=== PATIENT | female | born 1985 | race American Indian/Alaskan Native ===

== ENCOUNTER 2017-11-28 08:11 | Emergency (ER) | payer SELFPAY ==
[2017-11-28 08:28] VITALS: BP 120/62
[2017-11-28] MEDS ORDERED: BOOSTRIX IM ONE (09:44)
[2017-11-28] MEDS ORDERED: MOTRIN PO ONE (09:44)
[2017-11-28] MEDS ORDERED: XYLOCAINE 1% MPF 5 mL INFILTRATI ONE (09:44)
--- NOTE | 2017-11-28 09:45 | Emergency Department Report ---
Blank Doc - Documentation Documentation: Patient is a 31-year-old female who states that she was taking out a trash this morning and there was a piece of glass that poked through the bag and cut her in the left lower extremity. Patient has a proximally 4 cm laceration that is present the anterior lower extremity on the left. There is no active bleeding at this time. Patient is needing a tetanus shot today. Patient removed to a treatment room for laceration repair.
--- NOTE | 2017-11-28 10:34 | Emergency Department Report ---
- General Chief Complaint: Wound/Laceration Stated Complaint: LEG LACERATION Time Seen by Provider: 11/28/17 09:17 Source: patient Mode of arrival: Ambulatory Limitations: No Limitations - History of Present Illness Initial Comments: 31-year-old female past medical history none presents with complaint of laceration to left lower extremity. Patient was throwing out glass this morning at home and states that she accidentally cut her leg with broken glass. Denies any other injuries. Visible laceration to left lower extremity below left knee. Unknown tetanus status. -: This morning Location: other Extremity Location: Left: Lower Leg (diagonal laceration across the left lower knee region) Place: home Patient Tetanus UTD: No Context: accidental Associated Symptoms: pain - Related Data Previous Rx's Medication Instructions Recorded Last Taken Type Acetaminophen/Codeine [Tylenol 1 tab PO Q6H PRN #4 tab 11/28/17 Unknown Rx /Codeine # 3 tab] Cephalexin [Keflex] 500 mg PO BID #14 capsule 11/28/17 Unknown Rx Ibuprofen [Motrin] 800 mg PO Q8HR PRN #20 tablet 11/28/17 Unknown Rx Allergies Allergy/AdvReac Type Severity Reaction Status Date / Time No Known Allergies Allergy Unverified 11/28/17 08:28 ED Review of Systems ROS: Stated complaint: LEG LACERATION Other details as noted in HPI Constitutional: denies: chills, fever Eyes: denies: eye pain, eye discharge, vision change ENT: denies: ear pain, throat pain Respiratory: denies: cough, shortness of breath, wheezing Cardiovascular: denies: chest pain, palpitations Endocrine: no symptoms reported Gastrointestinal: denies: abdominal pain, nausea, diarrhea Genitourinary: denies: urgency, dysuria, discharge Musculoskeletal: denies: back pain, joint swelling, arthralgia Skin: denies: rash, lesions Neurological: denies: headache, weakness, paresthesias Psychiatric: denies: anxiety, depression Hematological/Lymphatic: denies: easy bleeding, easy bruising ED Past Medical Hx - Past Medical History Previous Medical History?: No - Surgical History Past Surgical History?: No - Social History Smoking Status: Current Some Day Smoker Substance Use Type: Alcohol - Medications Home Medications: Home Medications Medication Instructions Recorded Confirmed Last Taken Type Acetaminophen/Codeine [Tylenol 1 tab PO Q6H PRN #4 tab 11/28/17 Unknown Rx /Codeine # 3 tab] Cephalexin [Keflex] 500 mg PO BID #14 capsule 11/28/17 Unknown Rx Ibuprofen [Motrin] 800 mg PO Q8HR PRN #20 tablet 11/28/17 Unknown Rx ED Physical Exam - General Limitations: No Limitations General appearance: alert, in no apparent distress - Head Head exam: Present: atraumatic, normocephalic - Eye Eye exam: Present: normal appearance - ENT ENT exam: Present: mucous membranes moist - Neck Neck exam: Present: normal inspection - Respiratory Respiratory exam: Present: normal lung sounds bilaterally. Absent: respiratory distress - Cardiovascular Cardiovascular Exam: Present: regular rate, normal rhythm. Absent: systolic murmur, diastolic murmur, rubs, gallop - GI/Abdominal GI/Abdominal exam: Present: soft, normal bowel sounds - Extremities Exam Extremities exam: Present: normal inspection - Expanded Lower Extremity Exam Left Knee exam: Present: normal inspection, full ROM Lower Leg exam: Present: tenderness, laceration (diagonal laceration approximately 8-9 cm left lower anterior pretibial region) Neuro vascular tendon exam: Present: no vascular compromise Gait: Positive: observed and normal 1 - Diagonal laceration here - Back Exam Back exam: Present: normal inspection - Neurological Exam Neurological exam: Present: alert, oriented X3, CN II-XII intact, normal gait - Psychiatric Psychiatric exam: Present: normal affect, normal mood - Skin Skin exam: Present: warm, dry, intact, normal color. Absent: rash ED Course Vital Signs 11/28/17 08:20 Temperature 98.2 F Pulse Rate 70 Respiratory 18 Rate Blood Pressure 120/62 Blood Pressure 120/62 [Right] O2 Sat by Pulse 99 Oximetry - Laceration /Wound Repair Left Lower Anterior Leg Wound Location: lower extremity (left lower pretibial region) Wound Length (cm): 9 Wound's Depth, Shape: linear Irrigated w/ Saline (ccs): 200 Anesthesia: 1% Lidocaine Volume Anesthetic (ccs): 8 Wound Debrided: minimal Wound Repaired With: sutures, Steri-strips Suture Size/Type: 3:0, proline Number of Sutures: 7 Layer Closure?: No Progress: Area infiltrated with lidocaine 1% without epinephrine. Good local anesthesia achieved. Wound irrigated with saline approximately 200 mL. 7 Prolene sutures placed with good approximation and closure of wound. Procedure tolerated well with minimal bleeding to small Steri-Strips placed on edges of the wound. Covered with gauze afterward. ED Medical Decision Making - Medical Decision Making A/P: Left lower extremity laceration 1-sutures to be removed in 10-14 days 2-tetanus updated 3-Motrin when necessary, triple antibiotic ointment, course of Keflex 4- pt advised to return to the ED for any fevers chills pus drainage erythema at site of laceration Critical care attestation.: If time is entered above; I have spent that time in minutes in the direct care of this critically ill patient, excluding procedure time. ED Disposition Clinical Impression: Laceration of left lower extremity Qualifiers: Encounter type: initial encounter Qualified Code(s): S81.812A - Laceration without foreign body, left lower leg, initial encounter Disposition: TO HOME OR SELFCARE Is pt being admited?: No Does the pt Need Aspirin: No Condition: Stable Instructions: Suture Care (ED), Laceration (ED) Prescriptions: Acetaminophen/Codeine [Tylenol /Codeine # 3 tab] 1 tab PO Q6H PRN #4 tab PRN Reason: Pain Cephalexin [Keflex] 500 mg PO BID #14 capsule Ibuprofen [Motrin] 800 mg PO Q8HR PRN #20 tablet PRN Reason: Pain Referrals: [facility] [Provider Group] - 3-5 Days Forms: Accompanied Note, Work/School Release Form(ED) Time of Disposition: 10:34
== END 2017-11-28 10:41 | disposition home or self-care (01) ==
LOC: ED 08:11
DX: S81.812A Laceration without foreign body, left lower leg, initial encounter (principal); F17.200 Nicotine dependence, unspecified, uncomplicated; W25.XXXA Contact with sharp glass, initial encounter; Y93.89 Activity, other specified; Y99.8 Other external cause status; Y92.89 Other specified places as the place of occurrence of the external cause
CPT/HCPCS: 90471; 90715; 99282